=== PATIENT | male | born 1990 | race Caucasian/White ===

== ENCOUNTER 2020-03-23 10:30 | Outpatient (CLI) | payer SELFPAY ==
[2020-03-23 22:12] LABS: COVID-19 RT-PCR UVMMC Result Negative (Negative)
== END 2020-03-23 10:50 ==
PROVIDERS: PCP Physician Assistant; Visit Provider Nurse Practitioner Family
DX: Z11.52 Encounter for screening for COVID-19 (principal)
CPT/HCPCS: U0003

== ENCOUNTER 2021-05-10 17:58 | Outpatient (REF) | payer OTHER, SELFPAY ==
--- NOTE | 2021-05-10 13:25 | SKI_PTH ---
PATIENT: Mane Silveira LOC: [facility] U#:[id number] AGE/SX: 30/M ROOM: RE05/10/[address]: Landry Penny : 1990 BED: DIS: 05/10/2021 SPEC #: [id number] RECD: 05/10/21 18:23 STATUS: DEMARIO REAmarilys #: [id number] SHAYLA: 05/10/21 13:[address]: Landry Penny DEPT: Surgical Specimen RECD BY: Anna Hardin Tissues: 1 - SKIN BIOPSY(SHAVE/PUNCH) Procedures: SKIN LEVEL 4 Comments: [id number]
== END 2021-05-10 17:59 | disposition home or self-care (01) ==
LOC: NCHCN 17:58
PROVIDERS: PCP Physician Assistant; Visit Provider Physician Assistant
DX: D22.5 Melanocytic nevi of trunk (principal)
CPT/HCPCS: 88305

== ENCOUNTER 2022-01-23 22:18 | Emergency (ER) | payer OTHER, SELFPAY ==
[2022-01-23 22:20] VITALS: BP 124/89; PULSE 68; RESP 18; TEMP 36.6; O2SAT 99
--- NOTE | 2022-01-23 22:44 | W.ED.GENAD ---
Discharge Plan Disposition Patient Disposition: Home Condition: Good Discharge Details Clinical Impression: Pain, dental Primary Care Provider: Landry Penny ED Provider: Claus Davis Home Meds and New Rx's Prescriptions: New penicillin V potassium 500 mg tablet 500 mg PO QID 10 Days Qty: 40 0RF Discharge Instructions Instructions: Toothache (ED) Additional Instructions: The block we administered should help improve your pain. Please take 800 mg of ibuprofen every 6 hours and 1000 mg of Tylenol every 6 hours to help with the inflammation and pain. These are the maximum doses. Please take the antibiotic as directed to help with the infection in your tooth. Please use the dental list that we have provided to contact the dentist for prompt follow-up and evaluation for tooth removal. If you notice any worsening of your symptoms, or any new symptoms such as difficulty swallowing, difficulty breathing, vomiting, diarrhea, fever, chills, shortness of breath, chest pain, numbness, weakness, or fainting , please return immediately to the emergency department for reevaluation. Please follow up with your primary care provider as soon as possible for reassessment and reevaluation. As always, it was a pleasure participating in your medical care today. Referrals: Landry Penny [Primary Care Provider] - Medical Decision Making 31-year-old male with no significant past medical history presents today for left lower dental pain. Pain is been present for the last 2 days. He knows he has poor dental health. He denies fever chills or difficulty swallowing. No throat swelling. No other complaints. Patient demonstrates notable dental caries, especially in the left lower aspect. No evidence of periapical abscess. No evidence of Ludewig's angina. Patient consented for dental block. Dental block was performed, patient tolerated this with improvement of pain. We will give penicillin for home use, discussed red flags for which to return. Recommend close dental follow-up. I have extensively reviewed the treatment plan and discharge instructions with the patient. I have addressed all patient concerns at this time. The patient was made aware of what symptoms to monitor for that would warrant a return to the emergency department. Discussed the plan with the patient, they demonstrate verbal understanding and agreement with our assessment and plan at this time. The documentation in this chart was dictated using [employer] dictation software. Please excuse any dictation errors. Sign Out No HPI General Date/Time Provider Initiated Documentation: 01/23/22 22:43. HPI Narrative: 31-year-old male with no significant past medical history presents today for left lower dental pain. Pain is been present for the last 2 days. He knows he has poor dental health. He denies fever chills or difficulty swallowing. No throat swelling. No other complaints. Related Data Home Medications Medication Instructions Recorded Confirmed penicillin V potassium 500 mg 500 mg PO QID 10 days #40 tabs 01/23/22 tablet Previous Rx's Medication Instructions Recorded penicillin V potassium 500 mg 500 mg PO QID 10 days #40 tabs 01/23/22 tablet Allergies Allergy/AdvReac Type Severity Reaction Status Date / Time No Known Allergies Allergy Unverified 04/24/17 05:59 General Stated Complaint: DentalOral SRAVAN: 4 Review of Systems All systems reviewed & are unremarkable except as noted in HPI and below PFSH All Active Problems Pain, dental (Acute) Social History Smoking/Tobacco Use Status: Never Smoking risk assessment performed?: Yes Alcohol Intake: current Alcohol Intake frequency: a few times a month Drug use: Never Substance use type: does not use Do you feel safe at home: Yes Do you feel safe in your relationship?: Yes Exam Narrative Exam Narrative: 1.Const: Well-nourished, Well-developed, appearing stated age 2.Eyes: PERRL, no conjunctival injection, and symmetrical lids. Notable dental caries throughout. No periapical abscess. Left posterior molars demonstrate notable poor dental health, with old fractured teeth. 3.ENT: Atraumatic external nose and ears. Moist MM. Neck: Symmetric, trachea midline, No thyromegaly. 4.CVS: +S1/S2, No murmurs or gallops. Peripheral pulses 2+ and equal in all extremities. Brisk capillary refill in all extremities. 5.RESP: Unlabored respiratory effort. Clear to auscultation bilaterally. No wheezes rales or rhonchi 6.GI: Soft, Nontender/Nondistended, No hepatosplenomegaly. No guarding or rebound. 7.MSK: Normocephalic/Atraumatic, Extremities w/o deformity or ttp No cyanosis or clubbing, Normal movement of all extremities 8.Skin: Warm, Dry. No rashes or lesions. 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 Sensation grossly intact, no focal neurologic deficits. 10.Psych: (AAO) x3. Appropriate mood and affect Course Vital Signs Vital signs: Vital Signs Temperature 36.6 C 01/23/22 22:20 Pulse 68 01/23/22 22:20 Respiratory Rate 18 01/23/22 22:20 Blood Pressure 124/89 01/23/22 22:20 Pulse Oximetry 99 01/23/22 22:20 Temperature 36.6 C 01/23/22 22:20 Temperature Source Tympanic 01/23/22 22:20 Pulse 68 01/23/22 22:20 Respiratory Rate 18 01/23/22 22:20 Respiratory Effort 01/23/22 22:24 Blood Pressure 124/89 01/23/22 22:20 Blood Pressure Position Supine 01/23/22 22:20 Pulse Oximetry 99 01/23/22 22:20 Oxygen Delivery Method Room Air 01/23/22 22:20 Oxygen Flow Rate 0 01/23/22 22:20 Pain Level 10 01/23/22 22:20 Procedures Nerve Block Nerve Block 1: Time out performed: Yes Local Anesthetic: Bupivicaine 0.5% Amount of anesthesia used (mL): 6 Side: left Intraoral Nerve Block: inferior alveolar Procedure Successful: Yes Patient Tolerated Procedure: well and no complications Complications: none
[2022-01-23] MEDS: Bupivacaine 0.5% Pres-Free 30 ML VIAL IJ (23:06)
== END 2022-01-23 23:04 | disposition home or self-care (01) ==
PROVIDERS: Emergency Provider Student in an Organized Health Care Education/Training Program; PCP Physician Assistant
DX: K08.89 Other specified disorders of teeth and supporting structures (principal)
CPT/HCPCS: 64400

== ENCOUNTER 2023-05-05 10:42 | Emergency (ER) | payer OTHER, SELFPAY ==
[2023-05-05 10:48] VITALS: BP 165/101; PULSE 78; RESP 18; TEMP 36.3; O2SAT 97
[2023-05-05 10:59] VITALS: RESP 16
--- NOTE | 2023-05-05 11:15 | DI.CT_ITS ---
Exam(s) CT CERVICAL SPINE WO EXAM: CT CERVICAL SPINE WO CLINICAL HISTORY: pain, tenderness. TECHNIQUE: Imaging Protocol: Axial computed tomography images with coronal and sagittal reformatted images were created and reviewed CONTRAST MATERIAL: Noncontrast COMPARISON: No exams were available for comparison FINDINGS: Bones: No fracture or dislocations are seen. The alignment of the cervical spine is normal including the cervicovertebral junction and cervicothoracic junction. Soft Tissues: The soft tissues of the neck are unremarkable. No paraspinal hematoma. No large disk herniations are identified. The visualized portions of the lung apices are clear. No pneumothorax is seen. The thyroid, parotid and submandibular glands are unremarkable. IMPRESSION: Normal CT scan of the cervical spine. RADIATION DOSE DELIVERED: Total DLP DATA REPOSITORY: All CT scans at this facility are submitted to the National Radiology Data Registry (NRDR) Dose Index Registry (DIR) with the [employer] (A[employer]). RADIATION OPTIMIZATION: All CT scans at this facility use at least one of these dose optimization te chniques: automated exposure control; mA and/or kV adjustment per patient size (includes targeted exa ms where dose is matched to clinical indication); or iterative reconstruction.
--- NOTE | 2023-05-05 11:27 | W.ED.GENAD ---
Discharge Plan Disposition Patient Disposition: Home Condition: Stable Discharge Details Clinical Impression: Acute sprain of ligament of cervical spine Primary Care Provider: Landry Penny ED Provider: Gregory Avalos Home Meds and New Rx's Prescriptions: No Action No Known Home Meds Discharge Instructions Instructions: Cervical Sprain (ED) Additional Instructions: Please take ibuprofen over the counter. Take 600mg by mouth every 6 hours as needed for pain. Avoid activities that cause pain. Please contact your primary care physician to arrange follow-up. Return to the ER immediately for any worsening or new concerning symptoms. Referrals: Landry Penny [Primary Care Provider] - Discharge Data Discharge Date/Time-TO BE ENTERED AT DEPARTURE: 05/05/23 12:55 HPI General Mode of arrival: ambulatory. Date/Time Provider Initiated Documentation: 05/05/23 10:59. Limitations to Documentation: no limitations. Information obtained by: patient. HPI Narrative: 32-year-old male here with chief complaint of neck pain. Patient states he was roughhousing with his on the couch 3 to 4 weeks ago and felt a popping sensation in his neck. He has had pain intermittently since this initial injury. He states he has been working over the past week putting up a ceiling and hyperextending his neck. He thinks this is worsening his discomfort. He denies associated numbness or tingling. Related Data Home Medications Medication Instructions Recorded Confirmed Unknown [No Known Home Meds] 05/05/23 05/05/23 Allergies Allergy/AdvReac Type Severity Reaction Status Date / Time No Known Allergies Allergy Unverified 05/05/23 10:54 General Stated Complaint: GenMedical SRAVAN: 3 Review of Systems All systems reviewed & are unremarkable except as noted in HPI and below Constitutional Constitutional: Denies fever(s) Neurologic Neurologic: Reports as per HPI Exam Const General: cooperative and no acute distress [facility] Head: normocephalic and atraumatic Mouth: moist mucous membranes Eyes Conjunctivae: normal conjunctivae Sclera: normal sclerae Neck Neck: trachea midline and supple Resp Auscultation: clear to auscultation bilaterally, no rales, no rhonchi and no wheezes Cardio Rate: regular rate and not tachycardic Rhythm: regular rhythm Back/Spine/Pelvis Cervical Spine: cervical spinal tenderness (C6-T1) and No step off deformity Skin General skin exam: no rashes or lesions noted Neuro General: patient alert, patient awake and tone normal Cognition: normal cognition Motor: strength 5/5 throughout (bilateral UEs) Sensory Exam: no sensory deficits noted (UEs) Course Vital Signs Vital signs: Vital Signs Temperature 36.3 C L 05/05/23 10:48 Pulse 78 05/05/23 10:48 Respiratory Rate 18 05/05/23 10:48 Blood Pressure 165/101 H 05/05/23 10:48 Pulse Oximetry 97 05/05/23 10:48 Temperature 36.3 C L 05/05/23 10:48 Temperature Source Skin 05/05/23 10:48 Pulse 78 05/05/23 10:48 Respiratory Rate 16 05/05/23 10:59 Respiratory Effort Normal, Non-Labored 05/05/23 10:59 Respiratory Depth Normal 05/05/23 10:59 Respiratory Pattern Normal 05/05/23 10:59 Blood Pressure 165/101 H 05/05/23 10:48 Blood Pressure Position Sitting 05/05/23 10:48 Pulse Oximetry 97 05/05/23 10:48 Oxygen Delivery Method Room Air 05/05/23 10:48 Oxygen Flow Rate 0 05/05/23 10:48 Pain Level 7 05/05/23 10:59 Medical Decision Making 32-year-old male here here with neck pain. Patient sustained initial injury about 3 weeks ago while roughhousing with his . At that time he felt a popping sensation. He has been working on a ceiling and hyper extending his neck which has worsened his pain. Patient is neurologically intact. Concern for C-spine fracture versus sprain versus disc herniation. CT of the cervical spine was interpreted by radiology: Bones: No fracture or dislocations are seen. The alignment of the cervical spine is normal including the cervicovertebral junction and cervicothoracic junction. Soft Tissues: The soft tissues of the neck are unremarkable. No paraspinal hematoma. No large disk herniations are identified. The visualized portions of the lung apices are clear. No pneumothorax is seen. The thyroid, parotid and submandibular glands are unremarkable. IMPRESSION: Normal CT scan of the cervical spine. I reviewed results with the patient. I offered soft collar and patient declined. I advised he avoid any activities that worsen pain. I recommended a course of ibuprofen and follow-up with PCP should symptoms persist. Usual customary discharge instructions were reviewed. He was encouraged to return immediately for any worsening or new concerning symptoms. Quality:SDOH Health Related Social Needs: No Data to Display PFSH All Active Problems (Updated 05/05/23 @ 12:40 by Gregory Avalos MD) Acute sprain of ligament of cervical spine (Acute) Social History Smoking/Tobacco Use Status: Never Smoking risk assessment performed?: Yes Alcohol Intake: current Alcohol Intake frequency: a few times a month Drug use: Never Substance use type: does not use Do you feel safe at home: Yes Do you feel safe in your relationship?: Yes
[2023-05-05 12:53] VITALS: BP 136/78; PULSE 80; RESP 20; TEMP 36.6; O2SAT 98
== END 2023-05-05 12:55 | disposition home or self-care (01) ==
PROVIDERS: Emergency Provider Student in an Organized Health Care Education/Training Program; PCP Physician Assistant
DX: M54.2 Cervicalgia (principal); S13.4XXA Sprain of ligaments of cervical spine, initial encounter; Y93.83 Activity, rough housing and horseplay
CPT/HCPCS: 99284; 72125; 99283